=== PATIENT | male | born 1950 | race Caucasian/White ===

== ENCOUNTER 2023-04-13 21:08 | Emergency (ER) | payer OTHER ==
--- OUTSIDE RECORDS SUMMARY | 2023-04-13 21:13 | XMS REPORT | Continuity of Care Document ---
:1950 Author Organization [facility] t Address [address] [place] [address] Care Team Providers Name Role Phone Asked, No Pcp Primary Care Physician Unavailable Yas CADENA, Markie Attending Clinician Payers Payer Name Policy Type Policy Number Effective Date Expiration Date S ource Problems This patient has no known problems. Allergies, Adverse Reactions, Alerts Allergy Allergy Status Severity Reaction(s) Onset Inactive Treating Comm ents Source Name Type Date Date Clinician Other Propensi Active Method i ty to 09-[address] adverse 00:00: mites - Hospita reaction 00 congestio l s ns Penicill Propensi Active [facility] carla in G ty to 09-22 st adverse 00:00: Hospita reaction 00 l s to drug Social History Social Habit Start Date Stop Date Quantity Comments Source Sexual orientation [facility] Alcohol intake 2017-10-07 2017-10-07 Current [facility] 00:00:00 00:00:00 non-drinker of Hospital alcohol (finding) Tobacco use and 2017-09-22 2017-09-22 Smokeless [facility] exposure 00:00:00 00:00:00 tobacco non-user Hospital History of Social 2017-09-22 2017-09-[address] function 00:00:00 00:00:00 Hospital Sex Assigned At [birth year] [facility] 00:00:00 [facility]00 [facility] Smoking Status Start Date Stop Date Source Never smoked tobacco [facility] Medications Ordered Filled Start Stop Current Ordering Indication Dosage Frequency Signature Comments Components Source Medication Medication Date Date Medication? Clinician (SIG) Name Name polyethylen 2018 Yes 17g Q24H Take 17 g M ethodi e glycol 5-[address] (MIRALAX) 18:16: daily as [facility]osp [facility] 17 gram 30 needed for l packet constipati on. fluticasone Yes 1{puff} Q.5D Inhale 1 [facility] (FLOVENT 5-[address] HFA) 110 18:16: (two) Hospita mcg/actuati 30 times a l on inhaler day. azelastine Yes 1{spray Q.5D 1 spray M ethodi (ASTELIN) 5-22 } into each st 137 mcg 18:16: nostril 2 Hospi ta (0.1 %) 30 (two) l nasal spray times a day. Use in each nostril as directed losartan-hy Yes 1{tbl} QD Take 1 [facility] drochloroth 5-[address] iazide 18:16: mouth Hospita (HYZAAR) 30 daily. l 100-12.5 mg per tablet bisoprolol Yes 5mg QD Take 5 mg [facility] (ZEBETA) 5 5-[address] MG tablet 18:16: daily. Hospit a 30 l ranitidine Yes 150mg Q24H Take 150 [facility] (ZANTAC) 5-[address] 150 MG 18:16: mouth [facility]ospita tablet 30 daily as l needed for heartburn. flaxseed Yes [facility] oil oil 5-22 st 18:16: Hospita 30 l docosahexan Yes Take by Met hodi oic 5-[address] acid/epa 18:16: Hospita (FISH OIL 30 l ORAL) polyethylen Yes 17g Q24H Take 17 g M ethodi e glycol 5-[address] (MIRALAX) 18:16: daily as Hosp [facility]illary 17 gram 30 needed for l packet constipati on. NON Yes SINUPRO / Methodi FORMULARY 5-[address] 18:16: cap daily Hospita 30 l multivitami Yes 1{tbl} QD Take 1 Me thodi n 5-[address] (THERAGRAN) 18:16: mouth Hospi ta tablet 30 daily. l acetaminoph 2018-0 Yes 500mg Q6H Take 500 M ethodi en 5-[address] (TYLENOL) 18:16: mouth [facility]ospita 500 MG 30 every 6 l tablet (six) hours as needed for mild pain. IBUPROFEN 2018-0 Yes Take by Metho di ORAL 5-[address] 18:16: Hospita 30 l NON 2018-0 Yes SINUPRO / Methodi FORMULARY 5-[address] 18:16: cap daily Hospita 30 l multivitami 2018-0 Yes 1{tbl} QD Take 1 Me thodi n 5-[address] (THERAGRAN) 18:16: mouth Hospi ta tablet 30 daily. l acetaminoph 2018-0 Yes 500mg Q6H Take 500 M ethodi en 5-[address] (TYLENOL) 18:16: mouth Hospita 500 MG 30 every 6 l tablet (six) hours as needed for mild pain. IBUPROFEN 2018-0 Yes Take by Metho di ORAL 5-[address] 18:16: Hospita 30 l fluticasone 2018-0 Yes 1{puff} Q.5D Inhale 1 [facility] (FLOVENT 5-[address] HFA) 110 18:16: (two) Hospita mcg/actuati 30 times a l on inhaler day. azelastine 2017-0 Yes 1{spray Q.5D 1 spray M ethodi (ASTELIN) 5-22 } into each st 137 mcg 18:16: nostril 2 Hospi ta (0.1 %) 30 (two) l nasal spray times a day. Use in each nostril as directed losartan-hy 2018-0 Yes 1{tbl} QD Take 1 Me [facility] drochloroth 5-[address] iazide 18:16: mouth Hospita (HYZAAR) 30 daily. l 100-12.5 mg per tablet bisoprolol 2018-0 Yes 5mg QD Take 5 mg [facility] (ZEBETA) 5 5-[address] MG tablet 18:16: daily. Hospit a 30 l ranitidine 2018-0 Yes 150mg Q24H Take 150 [facility] (ZANTAC) 5-[address] 150 MG 18:16: mouth Hospita tablet 30 daily as l needed for heartburn. flaxseed 2018-0 Yes [facility] oil oil - st 18:16: Hospita 30 l docosahexan 2018-0 Yes Take by Met hodi oic 5-[address] acid/epa 18:16: Hospita (FISH OIL 30 l ORAL) polyethylen 2018-0 Yes 17g Q24H Take 17 g M ethodi e glycol 5-[address] (MIRALAX) 18:16: daily as Hosp [facility]illary 17 gram 30 needed for l packet constipati on. NON 2018-0 Yes SINUPRO / [facility] FORMULARY -[address] 18:16: cap daily Hospita 30 l multivitami 2018-0 Yes 1{tbl} QD Take 1 Me thodi n 5-[address] (THERAGRAN) 18:16: mouth Hospi ta tablet 30 daily. l acetaminoph 2017-0 Yes 500mg Q6H Take 500 M ethodi en 5-[address] (TYLENOL) 18:16: mouth [facility]ospita 500 MG 30 every 6 l tablet (six) hours as needed for mild pain. IBUPROFEN 2017-0 Yes Take by Metho di ORAL - mouth. st 18:16: Hospita 30 l fluticasone 2017-0 Yes 1{puff} Q.5D Inhale 1 [facility] (FLOVENT 5-[address] HFA) 110 18:16: (two) Hospita mcg/actuati 30 times a l on inhaler day. azelastine 2017-0 Yes 1{spray Q.5D 1 spray M ethodi (ASTELIN) 5-22 } into each st 137 mcg 18:16: nostril 2 Hospi ta (0.1 %) 30 (two) l nasal spray times a day. Use in each nostril as directed losartan-hy 2018-0 Yes 1{tbl} QD Take 1 Me thodi drochloroth 5-[address] iazide 18:16: mouth [facility]ospita (HYZAAR) 30 daily. l 100-12.5 mg per tablet bisoprolol 2017-0 Yes 5mg QD Take 5 mg [facility] (ZEBETA) 5 5-[address] MG tablet 18:16: daily. Hospit a 30 l ranitidine 2018-0 Yes 150mg Q24H Take 150 Me [facility] (ZANTAC) 5-[address] 150 MG 18:16: mouth Hospita tablet 30 daily as l needed for heartburn. flaxseed 2017-0 Yes Method[facility] oil oil - st 18:16: Hospita 30 l docosahexan 2017-0 Yes Take by Met hodi oic 5- mouth. st acid/epa 18:16: Hospita (FISH OIL 30 l ORAL) polyethylen 2017-0 Yes 17g Q24H Take 17 g M ethodi e glycol 5-[address] (MIRALAX) 18:16: daily as Hosp [facility]illary 17 gram 30 needed for l packet constipati on. NON 0 Yes SINUPRO / [facility] FORMULARY - iflora 1 st 18:16: cap daily Hospita 30 l multivitami 2017-0 Yes 1{tbl} QD Take 1 Me thodi n 5-[address] (THERAGRAN) 18:16: mouth Hospi ta tablet 30 daily. l acetaminoph 0 Yes 500mg Q6H Take 500 M ethodi en 5-[address] (TYLENOL) 18:16: mouth [facility]ospita 500 MG 30 every 6 l tablet (six) hours as needed for mild pain. IBUPROFEN Yes Take by Metho di ORAL 10-[address] 18:16: Hospita 30 l fluticasone 2017-0 Yes 1{puff} Q.5D Inhale 1 [facility] (FLOVENT 5-[address] HFA) 110 18:16: (two) Hospita mcg/actuati 30 times a l on inhaler day. azelastine 0 Yes 1{spray Q.5D 1 spray M ethodi (ASTELIN) 5-22 } into each st 137 mcg 18:16: nostril 2 Hospi ta (0.1 %) 30 (two) l nasal spray times a day. Use in each nostril as directed losartan-hy 2017-0 Yes 1{tbl} QD Take 1 Me [facility] drochloroth 5-[address] iazide 18:16: mouth [facility]ospita (HYZAAR) 30 daily. l 100-12.5 mg per tablet bisoprolol 2017-0 Yes 5mg QD Take 5 mg Me [facility] (ZEBETA) 5 5-[address] MG tablet 18:16: daily. Hospit a 30 l ranitidine 2017-0 Yes 150mg Q24H Take 150 Me [facility] (ZANTAC) 5-[address] 150 MG 18:16: mouth [facility]ospita tablet 30 daily as l needed for heartburn. flaxseed 2017-0 Yes Method[facility] oil oil - st 18:16: Hospita 30 l docosahexan 2017-0 Yes Take by Met hodi oic -[address] acid/epa 18:16: Hospita (FISH OIL 30 l ORAL) polyethylen 2017-0 Yes 17g Q24H Take 17 g M ethodi e glycol 5-[address] (MIRALAX) 18:16: daily as Hosp [facility]illary 17 gram 30 needed for l packet constipati on. NON 2017-0 Yes SINUPRO / [facility] FORMULARY -[address] 18:16: cap daily Hospita 30 l multivitami 2017-0 Yes 1{tbl} QD Take 1 Me thodi n 5-[address] (THERAGRAN) 18:16: mouth Hospi ta tablet 30 daily. l acetaminoph 2017-0 Yes 500mg Q6H Take 500 M ethodi en 5-[address] (TYLENOL) 18:16: mouth [facility]ospita 500 MG 30 every 6 l tablet (six) hours as needed for mild pain. IBUPROFEN 2017-0 Yes Take by Metho di ORAL - mouth. st 18:16: Hospita 30 l fluticasone 2017-0 Yes 1{puff} Q.5D Inhale 1 [facility] (FLOVENT 5-[address] HFA) 110 18:16: (two) Hospita mcg/actuati 30 times a l on inhaler day. azelastine 2017-0 Yes 1{spray Q.5D 1 spray M ethodi (ASTELIN) 5-22 } into each st 137 mcg 18:16: nostril 2 Hospi ta (0.1 %) 30 (two) l nasal spray times a day. Use in each nostril as directed losartan-hy 2017-0 Yes 1{tbl} QD Take 1 Me th[facility] drochloroth 5-[address] iazide 18:16: mouth [facility]ospita (HYZAAR) 30 daily. l 100-12.5 mg per tablet bisoprolol 2017-0 Yes 5mg QD Take 5 mg [facility] (ZEBETA) 5 -[address] MG tablet 18:16: daily. Hospit a 30 l ranitidine 2017-0 Yes 150mg Q24H Take 150 [facility] (ZANTAC) 5-[address] 150 MG 18:16: mouth [facility]ospita tablet 30 daily as l needed for heartburn. flaxseed 2018-0 Yes Method[facility] oil oil - st 18:16: Hospita 30 l docosahexan 2018-0 Yes Take by Met hodi oic - mouth. st acid/epa 18:16: Hospita (FISH OIL 30 l ORAL) polyethylen 2017-0 Yes 17g Q24H Take 17 g M ethodi e glycol -[address] (MIRALAX) 18:16: daily as Hosp [facility]illary 17 gram 30 needed for l packet constipati on. NON 0 Yes SINUPRO / [facility] FORMULARY 10-[address] 18:16: cap daily Hospita 30 l multivitami 2017-0 Yes 1{tbl} QD Take 1 Me thodi n 5-[address] (THERAGRAN) 18:16: mouth Hospi ta tablet 30 daily. l acetaminoph 2017-0 Yes 500mg Q6H Take 500 M ethodi en 5-[address] (TYLENOL) 18:16: mouth Hospita 500 MG 30 every 6 l tablet (six) hours as needed for mild pain. IBUPROFEN 0 Yes Take by Metho di ORAL 10-[address] 18:16: Hospita 30 l fluticasone 2017-0 Yes 1{puff} Q.5D Inhale 1 [facility] (FLOVENT 5-[address] HFA) 110 18:16: (two) Hospita mcg/actuati 30 times a l on inhaler day. azelastine 2017-0 Yes 1{spray Q.5D 1 spray M ethodi (ASTELIN) 10-05 } into each st 137 mcg 18:16: nostril 2 Hospi ta (0.1 %) 30 (two) l nasal spray times a day. Use in each nostril as directed losartan-hy 2018-0 Yes 1{tbl} QD Take 1 Me thodi drochloroth 5-[address] iazide 18:16: mouth Hospita (HYZAAR) 30 daily. l 100-12.5 mg per tablet bisoprolol 2017-0 Yes 5mg QD Take 5 mg Me [facility] (ZEBETA) 5 5-[address] MG tablet 18:16: daily. Hospit a 30 l ranitidine 2018-0 Yes 150mg Q24H Take 150 Me [facility] (ZANTAC) 5-[address] 150 MG 18:16: mouth Hospita tablet 30 daily as l needed for heartburn. flaxseed 2017-0 Yes Method[facility] oil oil - st 18:16: Hospita 30 l docosahexan 2017-0 Yes Take by Met hodi oic - mouth. st acid/epa 18:16: Hospita (FISH OIL 30 l ORAL) polyethylen 2017-0 Yes 17g Q24H Take 17 g M ethodi e glycol 5-[address] (MIRALAX) 18:16: daily as Hosp [facility]illary 17 gram 30 needed for l packet constipati on. NON 0 Yes SINUPRO / [facility] FORMULARY -[address] 18:16: cap daily Hospita 30 l multivitami 2017-0 Yes 1{tbl} QD Take 1 Me thodi n 5-[address] (THERAGRAN) 18:16: mouth Hospi ta tablet 30 daily. l acetaminoph 2017-0 Yes 500mg Q6H Take 500 M ethodi en 5-[address] (TYLENOL) 18:16: mouth [facility]ospita 500 MG 30 every 6 l tablet (six) hours as needed for mild pain. IBUPROFEN 2017-0 Yes Take by Metho di ORAL - mouth. st 18:16: Hospita 30 l fluticasone 2018-0 Yes 1{puff} Q.5D Inhale 1 [facility] (FLOVENT 5-[address] HFA) 110 18:16: (two) Hospita mcg/actuati 30 times a l on inhaler day. azelastine 2017-0 Yes 1{spray Q.5D 1 spray M ethodi (ASTELIN) 10-05 } into each st 137 mcg 18:16: nostril 2 Hospi ta (0.1 %) 30 (two) l nasal spray times a day. Use in each nostril as directed losartan-hy 2018-0 Yes 1{tbl} QD Take 1 Me thodi drochloroth 5-[address] iazide 18:16: mouth [facility]ospita (HYZAAR) 30 daily. l 100-12.5 mg per tablet bisoprolol 0 Yes 5mg QD Take 5 mg [facility] (ZEBETA) 5 5-[address] MG tablet 18:16: daily. Hospit a 30 l ranitidine 2017-0 Yes 150mg Q24H Take 150 Me [facility] (ZANTAC) 5-[address] 150 MG 18:16: mouth Hospita tablet 30 daily as l needed for heartburn. flaxseed 2017-0 Yes Method[facility] oil oil - st 18:16: Hospita 30 l docosahexan 2017-0 Yes Take by Met hodi oic 5-[address] acid/epa 18:16: Hospita (FISH OIL 30 l ORAL) polyethylen 2017-0 Yes 17g Q24H Take 17 g M ethodi e glycol 5-[address] (MIRALAX) 18:16: daily as Hosp [facility]illary 17 gram 30 needed for l packet constipati on. NON 0 Yes SINUPRO / [facility] FORMULARY -[address] 18:16: cap daily Hospita 30 l multivitami 2017-0 Yes 1{tbl} QD Take 1 Me thodi n 5-[address] (THERAGRAN) 18:16: mouth Hospi ta tablet 30 daily. l acetaminoph 0 Yes 500mg Q6H Take 500 M ethodi en 5-[address] (TYLENOL) 18:16: mouth [facility]ospita 500 MG 30 every 6 l tablet (six) hours as needed for mild pain. IBUPROFEN 0 Yes Take by Metho di ORAL 5-[address] 18:16: Hospita 30 l fluticasone 2017-0 Yes 1{puff} Q.5D Inhale 1 [facility] (FLOVENT 5-[address] HFA) 110 18:16: (two) Hospita mcg/actuati 30 times a l on inhaler day. azelastine 2017-0 Yes 1{spray Q.5D 1 spray M ethodi (ASTELIN) 5-22 } into each st 137 mcg 18:16: nostril 2 Hospi ta (0.1 %) 30 (two) l nasal spray times a day. Use in each nostril as directed losartan-hy 0 Yes 1{tbl} QD Take 1 Me thodi drochloroth 5-[address] iazide 18:16: mouth [facility]ospita (HYZAAR) 30 daily. l 100-12.5 mg per tablet bisoprolol Yes 5mg QD Take 5 mg Me [facility] (ZEBETA) 5 5-[address] MG tablet 18:16: daily. Hospit a 30 l ranitidine Yes 150mg Q24H Take 150 [facility] (ZANTAC) 5-[address] 150 MG 18:16: mouth Hospita tablet 30 daily as l needed for heartburn. flaxseed 0 Yes Method[facility] oil oil - st 18:16: Hospita 30 l docosahexan Yes Take by Met hodi oic 5-[address] acid/epa 18:16: Hospita (FISH OIL 30 l ORAL) Procedures Procedure Date / Time Performed Performing Clinician [facility] e US VASCULAR SCREENING 2021-07-09 20:23:22 [facility] HEART SCAN PLUS CT HEART SCAN PLUS W 2021-07-09 18:19:51 [facility] PHYSICIAN ORDER Plan of Care Planned Activity Planned Date Details Comments Source Future Scheduled 2023-04-13 [facility] for [facility] 21:12:03 malignant neoplasm of colon (procedure) [code = 836437547] Future Scheduled 2023-04-13 Screening for [facility] Test 21:12:03 malignant neoplasm of colon (procedure) [code = 878062365] Future Scheduled 2023-04-13 [facility] for [facility] 21:12:03 malignant neoplasm of colon (procedure) [code = 869958246] Future Scheduled 2023-04-13 Hepatitis C screening [facility] Test 21:12:03 (procedure) [code = 654769136] Future Scheduled 2023-04-13 [facility]ening for [facility] 21:12:03 malignant neoplasm of colon (procedure) [code = 151486188] Future Scheduled 2023-04-13 [facility] for [facility] Test 21:12:03 malignant neoplasm of colon (procedure) [code = 700731042] Future Scheduled 2023-04-13 SHINGLES VACCINES (1 Met [facility] Test 21:12:03 of 2) [code = SHINGLES VACCINES (1 of 2)] Future Scheduled 2023-04-13 COVID-19 VACCINE (4 - [facility] Test 21:12:03 ) [code = COVID-19 VACCINE ()] Future Scheduled 2023-04-13 INFLUENZA VACCINE [facility] Test 21:12:03 (#1) [code = INFLUENZA VACCINE (#1)] Future Scheduled 2023-03-13 [facility]ening for [facility] 00:17:27 malignant neoplasm of colon (procedure) [code = 610370741] Future Scheduled 2023-03-13 [facility]ening for [facility] 00:17:27 malignant neoplasm of colon (procedure) [code = 716491187] Future Scheduled 2023-03-13 [facility] for [facility] Test 00:17:27 malignant neoplasm of colon (procedure) [code = 267265680] Future Scheduled 2023-03-13 Hepatitis C screening [facility] Test 00:17:27 (procedure) [code = 176439780] Future Scheduled 2023-03-13 Screening for [facility] Test 00:17:27 malignant neoplasm of colon (procedure) [code = 106222940] Future Scheduled 2023-03-13 [facility] for [facility] Test 00:17:27 malignant neoplasm of colon (procedure) [code = 867568942] Future Scheduled 2023-03-13 SHINGLES VACCINES (1 [facility] 00:17:27 of 2) [code = SHINGLES VACCINES (1 of 2)] Future Scheduled 2023-03-13 COVID-19 VACCINE (4 - [facility] Test 00:17:27 ) [code = COVID-19 VACCINE ()] Future Scheduled 2023-03-13 INFLUENZA VACCINE [facility] 00:17:27 (#1) [code = INFLUENZA VACCINE (#1)] Future Scheduled 2023-03-13 [facility] for [facility] 00:17:27 malignant neoplasm of colon (procedure) [code = 416503547] Future Scheduled 2023-03-13 [facility] for [facility] 00:17:27 malignant neoplasm of colon (procedure) [code = 219868444] Future Scheduled 2023-03-13 [facility] for [facility] Test 00:17:27 malignant neoplasm of colon (procedure) [code = 209553385] Future Scheduled 2023-03-13 [facility] Test 00:17:27 (procedure) [code = 625561395] Future Scheduled 2023-03-13 [facility]ening for [facility] Test 00:17:27 malignant neoplasm of colon (procedure) [code = 392820648] Future Scheduled 2023-03-13 Screening for [facility] Test 00:17:27 malignant neoplasm of colon (procedure) [code = 357868698] Future Scheduled 2023-03-13 SHINGLES VACCINES (1 [facility] 00:17:27 of 2) [code = SHINGLES VACCINES (1 of 2)] Future Scheduled 2023-03-13 COVID-19 VACCINE (4 - [facility] Test 00:17:27 season) [code = COVID-19 VACCINE (4 - season)] Future Scheduled 2023-03-13 INFLUENZA VACCINE [facility] Test 00:17:27 (#1) [code = INFLUENZA VACCINE (#1)] Future Scheduled 2023-03-13 Screening for [facility] Test 00:17:27 malignant neoplasm of colon (procedure) [code = 120531373] Future Scheduled 2023-03-13 [facility]ening for [facility] Test 00:17:27 malignant neoplasm of colon (procedure) [code = 326897890] Future Scheduled 2023-03-13 [facility]ening for [facility] Test 00:17:27 malignant neoplasm of colon (procedure) [code = 709105040] Future Scheduled 2023-03-13 [facility] Test 00:17:27 (procedure) [code = 219618352] Future Scheduled 2023-03-13 Screening for [facility] 00:17:27 malignant neoplasm of colon (procedure) [code = 803050782] Future Scheduled 2023-03-13 Screening for [facility] Test 00:17:27 malignant neoplasm of colon (procedure) [code = 373006607] Future Scheduled 2023-03-13 SHINGLES VACCINES (1 Met [facility] Test 00:17:27 of 2) [code = SHINGLES VACCINES (1 of 2)] Future Scheduled 2023-03-13 COVID-19 VACCINE (4 - [facility] Test 00:17:27 season) [code = COVID-19 VACCINE (4 - season)] Future Scheduled 2023-03-13 INFLUENZA VACCINE [facility] Test 00:17:27 (#1) [code = INFLUENZA VACCINE (#1)] Future Scheduled 2022-05-21 Hepatitis C screening [facility] Test 15:23:12 (procedure) [code = 101952313] Future Scheduled 2022-05-21 COLONOSCOPY SCREENING [facility] Test 15:23:12 [code = COLONOSCOPY SCREENING] Future Scheduled 2022-05-21 SHINGLES VACCINES (1 Met [facility] Test 15:23:12 of 2) [code = SHINGLES VACCINES (1 of 2)] Future Scheduled 2022-05-21 COVID-19 VACCINE (4 - [facility] Test 15:23:12 Booster for Pfizer series) [code = COVID-19 VACCINE (4 - Booster for Pfizer series)] Future Scheduled 2022-05-21 INFLUENZA VACCINE Method [facility] Test 15:23:12 [code = INFLUENZA VACCINE] Future Scheduled 2022-05-21 Hepatitis C screening [facility] Test 15:23:12 (procedure) [code = 708541598] Future Scheduled 2022-05-21 COLONOSCOPY SCREENING [facility] Test 15:23:12 [code = COLONOSCOPY SCREENING] Future Scheduled 2022-05-21 SHINGLES VACCINES (1 Met [facility] Test 15:23:12 of 2) [code = SHINGLES VACCINES (1 of 2)] Future Scheduled 2022-05-21 COVID-19 VACCINE (4 - [facility] Test 15:23:12 Booster for Pfizer series) [code = COVID-19 VACCINE (4 - Booster for Pfizer series)] Future Scheduled 2022-05-21 INFLUENZA VACCINE Method [facility] Test 15:23:12 [code = INFLUENZA VACCINE] Future Scheduled 2022-05-21 Hepatitis C screening [facility] Test 15:23:12 (procedure) [code = 436641412] Future Scheduled 2022-05-21 COLONOSCOPY SCREENING [facility] Test 15:23:12 [code = COLONOSCOPY SCREENING] Future Scheduled 2022-05-21 SHINGLES VACCINES (1 Met [facility] Test 15:23:12 of 2) [code = SHINGLES VACCINES (1 of 2)] Future Scheduled 2022-05-21 COVID-19 VACCINE (4 - Me [facility] Test 15:23:12 Booster for Pfizer series) [code = COVID-19 VACCINE (4 - Booster for Pfizer series)] Future Scheduled 2022-05-21 INFLUENZA VACCINE [facility] Test 15:23:12 [code = INFLUENZA VACCINE] Future Scheduled 2022-04-30 Hepatitis C screening [facility] Test 21:21:15 (procedure) [code = 592229274] Future Scheduled 2022-04-30 COLONOSCOPY SCREENING [facility] Test 21:21:15 [code = COLONOSCOPY SCREENING] Future Scheduled 2022-04-30 SHINGLES VACCINES (1 Met [facility] Test 21:21:15 of 2) [code = SHINGLES VACCINES (1 of 2)] Future Scheduled 2022-04-30 COVID-19 VACCINE (4 - [facility] Test 21:21:15 Booster for Pfizer series) [code = COVID-19 VACCINE (4 - Booster for Pfizer series)] Future Scheduled 2022-04-30 INFLUENZA VACCINE [facility] Test 21:21:15 [code = INFLUENZA VACCINE] Encounters Start End Encounter Admission Attending Care Care Encounter Source Date/Time Date/Time Type Type Clinicians Facility Department ID 2021-07-09 2021-07-[address]840.1 [id number] Methodi 11:34:07 23:59:00 Encounter Markie [id number] 3.430.2.7 Hospit a .3.564937 l .8 2021-07-09 2021-07-[address]1 [id number] Methodi 11:33:42 11:33:42 Encounter Markie [id number] 3.430.2.7 Hospit a .3.169380 l .8 2021-07-09 2021-07-09 Travel 1.2.840.1 [id number] Methodi 00:00:00 00:00:[id number] 3.430.2.7 0.2.7.3.698 Ho spita .3.586680 084.8 l .8 2021-06-13 2021-06-13 Travel 1.2.840.1 [id number] [id number] Methodi 00:00:00 00:00:[address] 3.430.2.7 0.2.7.3.698 Ho spita .3.353056 084.8 l .8 2021-06-09 2021-06-09 Travel 1.2.840.1 [id number] [id number] Methodi 00:00:00 00:00:[id number] 3.430.2.7 0.2.7.3.698 Ho spita .3.435808 084.8 l .8 2021-06-09 2021-06-09 Transcribe Yas, 1.2.840.1 [id number] Methodi 00:00:00 00:00:00 Orders Markie [id number] 3.430.2.7 Hospit a .3.709581 l .8 Results This patient has no known results.
[2023-04-13 22:41] LABS: Absolute Lymphocytes (CBC) 0.8 K/uL (0.7-4.9); Hematocrit 40.3 % (39.6-49.0); Lymphocytes % 8.4 % (15.3-44.8); MCV 88.7 fL (80-100); MPV 6.6 fL (7.6-11.3); Platelets 278 thou/uL (152-406); RBC Red Blood Cell Count 4.55 M/uL (4.33-5.43)
[2023-04-13 23:00] LABS: Potassium 3.3 mEq/L (3.5-5.1)
[2023-04-13 23:01] LABS: Albumin 3.7 g/dL (3.4-5.0); Bilirubin Total 0.4 mg/dL (0.2-1.0); Magnesium 2.6 mg/dL (1.6-2.4); Protein, Total 7.7 g/dL (6.4-8.2); Troponin High Sensitivity 13.7 pg/mL (<58.9)
[2023-04-13 23:06] LABS: Protime INR 1.07
[2023-04-14] MEDS ORDERED: MECLIZINE HCL 12.5 MG TAB ONE (00:22)
[2023-04-14] MEDS ORDERED: NA CHLORIDE 0.9% 500 ML ONE (00:22)
[2023-04-14 00:36] LABS: Specific Gravity 1.012 (1.005-1.030); Urine Bacteria None Seen /HPF (<20); Urine Bilirubin NEGATIVE (Negative); Urine Blood Negative (Negative); Urine Clarity Clear (Clear); Urine Color Light-Yellow (Yellow); Urine Glucose NEGATIVE (Negative); Urine Mucus Slight /HPF (None Seen); Urine Protein NEGATIVE (Negative); Urine RBC <5 /HPF (None Seen); Urine Urobilinogen Normal (Normal); Urine pH 6.5 (5.0-7.0)
--- NOTE | 2023-04-14 01:45 | ER ---
Nurse's Notes [facility] Name: Zachary Kaur Age: 73 yrs Sex: Male : 1950 Arrival Date: 04/13/2023 Time: 21:08 Bed 8 Private MD: Diagnosis: Dizziness and giddiness;Lower abdominal pain, unspecified;Hypokalemia Presentation: 04/13 21:26 Chief complaint: Patient states: took my losartan later in the day because i forgot to lg3 take it this morning. went about my evening. few hours later i bent over to look at something in the lower cabinet and when i stood up i was really dizzy and light headed. i checked my BP at least 5 times and it was all over the place. anywhere from 119-75 for my systolic. i feel ok now just a little weak. Coronavirus screen: Client denies travel out of the [place] in the last 14 days. At this time, the client does not indicate any symptoms associated with coronavirus-19. Ebola Screen: No symptoms or risks identified at this time. Initial Sepsis Screen: Does the patient meet any 2 criteria? No. Patient's initial sepsis screen is negative. Does the patient have a suspected source of infection? No. Patient's initial sepsis screen is negative. Risk Assessment: Do you want to hurt yourself or someone else? Patient reports no desire to harm self or others. Onset of symptoms was April 13, 2023. 21:26 Method Of Arrival: Ambulatory lg3 21:26 Acuity: RYAN 4 lg3 Triage Assessment: 21:32 General: Appears in no apparent distress. comfortable, Behavior is calm, cooperative. lg3 Pain: Denies pain. EENT: No deficits noted. No signs and/or symptoms were reported regarding the EENT system. Neuro: No deficits noted. [place] Agitation-Sedation Scale (RASS): 0 - Alert and Calm Level of Consciousness is awake, alert, obeys commands, Oriented to person, place, time, situation, Reports dizziness. Cardiovascular: No deficits noted. Denies chest pain, shortness of breath, Capillary refill < 3 seconds Clubbing of nail beds is absent JVD is absent Patient's skin is warm and dry. Respiratory: No deficits noted. Airway is patent Respiratory effort is even, unlabored, Respiratory pattern is regular, symmetrical. GI: No deficits noted. No signs and/or symptoms were reported involving the gastrointestinal system. Abdomen is round non-distended. : No deficits noted. No signs and/or symptoms were reported regarding the genitourinary system. Derm: No deficits noted. No signs and/or symptoms reported regarding the dermatologic system. Skin is intact, is healthy with good turgor, Skin is dry, Skin is normal, Skin temperature is warm. Musculoskeletal: No deficits noted. No signs and/or symptoms reported regarding the musculoskeletal system. Circulation, motion, and sensation intact. Range of motion: intact in all extremities. Historical: - Allergies: 21:32 PENICILLINS; lg3 - Home Meds: 21:32 losartan oral [Active]; Symbicort inhalation [Active]; azelastine nasal [Active]; lg3 Lipitor 10 mg Oral tablet [Active]; exhanse [Active]; - PMHx: 21:32 high cholesterol; HTN; Asthma; Pneumonia; prostate cancer; lg3 - PSHx: 21:32 prostate; sinus; lg3 - Immunization history:: Adult Immunizations up to date. - Social history:: Smoking status: Patient denies any tobacco usage or history of. Patient/guardian denies using alcohol, street drugs. Screenin:34 [facility] ED Fall Risk Assessment (Adult) History of falling in the last 3 months, vc1 including since admission No falls in past 3 months (0 pts) Confusion or Disorientation No (0 pts) Intoxicated or Sedated No (0 pts) Impaired Gait No (0 pts) Mobility Assist Device Used No (0 pt) Altered Elimination No (0 pt) Score/Fall Risk Level 0 - 2 = Low Risk Oriented to surroundings, Maintained a safe environment, Educated pt \T\ family on fall prevention, incl call for assistance when getting out of bed. Abuse screen: Denies threats or abuse. Nutritional screening: No deficits noted. Tuberculosis screening: No symptoms or risk factors identified. Assessment: 04/14 00:30 Reassessment: No changes from previously documented assessment. Patient and/or family vc1 updated on plan of care and expected duration. Pain level reassessed. Patient is alert, oriented x 3, equal unlabored respirations, skin warm/dry/pink. 01:30 Reassessment: No changes from previously documented assessment. Patient and/or family vc1 updated on plan of care and expected duration. Pain level reassessed. Patient is alert, oriented x 3, equal unlabored respirations, skin warm/dry/pink. Vital Signs: 04/13 21:26 BP 144 / 61; Pulse 70; Resp 17 S; Temp 98(O); Pulse Ox 100% on R/A; Weight 102.97 kg lg3 (R); Height 5 ft. 11 in. (R); 22:25 BP 154 / 79 Supine; Pulse 61; bp 22:29 BP 141 / 81 Standing; Pulse 69; Resp 16; Pulse Ox 97% ; bp 23:30 BP 142 / 78; Pulse 70; Resp 16; Pulse Ox 97% ; vc1 04/14 00:30 BP 132 / 77; Pulse 64; Resp 14; Pulse Ox 96% ; vc1 01:30 BP 130 / 76; Pulse 60; Resp 18; Pulse Ox 98% ; vc1 04/13 21:26 Body Mass Index 31.66 (102.97 kg, 180.34 cm) lg3 ED Course: 04/13 21:14 Patient arrived in ED. gm2 21:32 Triage completed. lg3 21:32 Arm band placed on left wrist. lg3 21:39 Clay Beard PA is PHCP. cp 21:39 Helder Robb MD is Attending Physician. cp 22:13 Devon Diehl, STEVE is Primary Nurse. bp 22:28 Inserted saline lock: 22 gauge in right forearm, using aseptic technique. Blood bp collected. 22:36 Patient has correct armband on for positive identification. Bed in low position. Call vc1 light in reach. Side rails up X2. Client placed on continuous cardiac and pulse oximetry monitoring. NIBP monitoring applied. 22:52 XRAY Chest (1 view) In Process Unspecified. EDMS 04/14 00:14 CT Head Brain wo Cont In Process Unspecified. EDMS 00:14 CT Abd/Pelvis - IV Contrast Only In Process Unspecified. EDMS 02:24 No provider procedures requiring assistance completed. IV discontinued, intact, vc1 bleeding controlled, No redness/swelling at site. Pressure dressing applied. Administered Medications: 00:00 Drug: Meclizine PO 25 mg PO once Route: PO; vc1 02:01 Follow up: Response: No adverse reaction; Marked relief of symptoms vc1 00:37 Drug: NS 0.9% IV 500 ml IV at 250 ml/hr continuous Route: IV; Rate: 250 ml/hr; Site: vc1 right antecubital; 01:49 Drug: Potassium PO Effervescent Tablet 50 mEq PO once; dissolve in 4 ounces of water or vc1 juice Route: PO; 02:01 Follow up: Response: No adverse reaction; Medication administered at discharge. vc1 Medication: 04/13 22:36 VIS not applicable for this client. vc1 Outcome: 04/14 01:44 Discharge ordered by . socorro 02:25 Discharged to home ambulatory, with significant other, 1 02:25 Condition: good 02:25 Discharge instructions given to patient, Instructed on discharge instructions, follow up and referral plans. Demonstrated understanding of instructions, follow-up care, 02:25 Patient left the ED. vc1 Signatures: Dispatcher [employer] EDMS Clay Beard PA PA cp Peltier, Brian RN Opal Donohue RN RN lg3 Aura Etienne RN RN vc1 Radha French 2
--- NOTE | 2023-04-14 01:45 | EDPHYS ---
Physician Documentation [facility] Name: Zachary Kaur Age: 73 yrs Sex: Male : 1950 Arrival Date: 04/13/2023 Time: 21:08 Bed 8 Private MD: ED Physician Helder Robb HPI: 04/13 21:45 This 73 yrs old Male presents to ER via Ambulatory with complaints of Dizziness, low cp blood pressure, Abdominal Pain. 21:45 The patient presents with dizziness, feeling faint, lightheadedness. Onset: The cp symptoms/episode began/occurred today. 21:45 Patient is a 73-year-old male who presents to the emergency department with complaints cp of having an episode of dizziness this evening when he bent over and stood up. He then reports he checked his blood pressure and measured a systolic pressure in the 70's. Patient complains of general weakness and lower abdominal pain. Patient reports 1 episode of diarrhea today and denies any vomiting. Denies any blood in his stool or dark tarry stools. Historical: - Allergies: 21:32 PENICILLINS; lg3 - Home Meds: 21:32 losartan oral [Active]; Symbicort inhalation [Active]; azelastine nasal [Active]; lg3 Lipitor 10 mg Oral tablet [Active]; exhanse [Active]; - PMHx: 21:32 high cholesterol; HTN; Asthma; Pneumonia; prostate cancer; lg3 - PSHx: 21:32 prostate; sinus; lg3 - Immunization history:: Adult Immunizations up to date. - Social history:: Smoking status: Patient denies any tobacco usage or history of. Patient/guardian denies using alcohol, street drugs. ROS: 21:50 Constitutional: Negative for body aches, chills, fever, poor PO intake, cp 21:50 Eyes: Negative for injury, pain, redness, and discharge, cp 21:50 ENT: Negative for drainage from ear(s), ear pain, sore throat, difficulty swallowing, difficulty handling secretions, 21:50 Cardiovascular: Negative for chest pain, edema, palpitations, 21:50 Respiratory: Negative for cough, shortness of breath, wheezing, 21:50 Abdomen/GI: Positive for abdominal pain, diarrhea, of the right lower quadrant and left lower quadrant, Negative for vomiting, constipation, 21:50 Back: Negative for pain at rest, pain with movement, 21:50 : Negative for urinary symptoms, 21:50 Neuro: Positive for dizziness, Negative for altered mental status, headache, numbness, speech changes, syncope, weakness, 21:50 All other systems are negative, Exam: 21:55 Constitutional: The patient appears in no acute distress, alert, awake, cp non-diaphoretic, non-toxic, well developed, well nourished, 21:55 Head/Face: Normocephalic, atraumatic. cp 21:55 Eyes: Periorbital structures: appear normal, Conjunctiva: normal, no exudate, no injection, Sclera: no appreciated abnormality, Lids and lashes: appear normal, bilaterally, 21:55 ENT: External ear(s): are unremarkable, Nose: is normal, Mouth: Lips: moist, Oral mucosa: pink and intact, moist, Posterior pharynx: is normal, airway is patent, no erythema, no exudate, 21:55 Neck: ROM/movement: is normal, is supple, without pain, no range of motions limitations, 21:55 Chest/axilla: Inspection: normal, 21:55 Cardiovascular: Rate: normal, Rhythm: regular, Edema: is not appreciated, JVD: is not appreciated, 21:55 Respiratory: the patient does not display signs of respiratory distress, Respirations: normal, no use of accessory muscles, no retractions, labored breathing, is not present, Breath sounds: are clear throughout, no decreased breath sounds, no stridor, no wheezing, 21:55 Abdomen/GI: Inspection: abdomen appears normal, Bowel sounds: active, all quadrants, Palpation: soft, in all quadrants, mild abdominal tenderness, in the right lower quadrant and left lower quadrant, rebound tenderness, is not appreciated, involuntary guarding, is not appreciated, 21:55 Back: pain, is absent, ROM is normal, 21:55 Neuro: Orientation: to person, place \T\ time. Mentation: is normal, Cerebellar function: is grossly normal, Motor: moves all fours, strength is normal, Sensation: is normal, Gait: is steady, at a normal pace, without difficulty, 22:35 ECG was reviewed by the Attending Physician. cp Vital Signs: 21:26 BP 144 / 61; Pulse 70; Resp 17 S; Temp 98(O); Pulse Ox 100% on R/A; Weight 102.97 kg lg3 (R); Height 5 ft. 11 in. (R); 22:25 BP 154 / 79 Supine; Pulse 61; bp 22:29 BP 141 / 81 Standing; Pulse 69; Resp 16; Pulse Ox 97% ; bp 23:30 BP 142 / 78; Pulse 70; Resp 16; Pulse Ox 97% ; vc1 04/14 00:30 BP 132 / 77; Pulse 64; Resp 14; Pulse Ox 96% ; vc1 01:30 BP 130 / 76; Pulse 60; Resp 18; Pulse Ox 98% ; vc1 04/13 21:26 Body Mass Index 31.66 (102.97 kg, 180.34 cm) lg3 MDM: 04/13 21:39 Patient medically screened. 23:00 Differential diagnosis: CVA, generalized weakness, GI bleed, hypovolemia, idiopathic cp dizziness, sepsis, TIA. 04/14 01:43 Data reviewed: vital signs, nurses notes, lab test result(s), EKG, radiologic studies, cp CT scan, plain films. 01:43 I considered the following discharge prescriptions or medication management in the emergency department Medications were administered in the Emergency Department. See MAR. Independent interpretation of the following test(s) in the Emergency Department EKG: See my EKG interpretation above. Care significantly affected by the following chronic conditions: Hypertension. Counseling: I had a detailed discussion with the patient and/or guardian regarding the historical points, exam findings, and any diagnostic results supporting the discharge/admit diagnosis, lab results, radiology results, to return to the emergency department if symptoms worsen or persist or if there are any questions or concerns that arise at home. Response to treatment: the patient's symptoms have markedly improved after treatment, and as a result, I will discharge patient. 04/13 22:11 Order name: CBC with Diff; Complete Time: 23:21 04/14 01:21 Interpretation: Normal except: MPV 6.6; MACY% 80.2; LYM% 8.4. 04/13 22:11 Order name: Magnesium; Complete Time: 23:21 04/14 01:21 Interpretation: Abnormal: MG 2.6. 04/13 22:11 Order name: PT-INR; Complete Time: 23:21 04/13 22:11 Order name: Troponin HS; Complete Time: 23:21 04/13 22:11 Order name: CMP; Complete Time: 23:21 04/14 00:37 Interpretation: Normal except: K 3.3; BUN 26; GFR 60; GLOB 4.0; A/G 0.9. 04/13 23:23 Order name: Urinalysis W/Microscopic; Complete Time: 00:37 04/14 01:22 Interpretation: Reviewed. 04/13 22:11 Order name: XRAY Chest (1 view) 04/13 23:23 Order name: CT Head Brain wo Cont 04/13 23:23 Order name: CT Abd/Pelvis - IV Contrast Only 04/13 22:11 Order name: EKG; Complete Time: 22:12 04/13 22:11 Order name: Cardiac monitoring; Complete Time: 22:19 04/13 22:11 Order name: EKG - Nurse/Tech; Complete Time: 22:28 04/13 22:11 Order name: IV Saline Lock; Complete Time: 22:28 04/13 22:11 Order name: Labs collected and sent; Complete Time: 22:28 04/13 22:11 Order name: O2 Per Protocol; Complete Time: 22:18 04/13 22:11 Order name: O2 Sat Monitoring; Complete Time: 22:18 04/13 22:14 Order name: Orthostatics; Complete Time: 22:28 cp EC/28 22:35 Rate is 61 beats/min. Rhythm is regular. IA interval is normal. QRS interval is normal. cp QT interval is normal. T waves are Inverted in leads aVL, aVR. Interpreted by me. Reviewed by me. Administered Medications: 04/14 00:00 Drug: Meclizine PO 25 mg PO once Route: PO; vc1 02:01 Follow up: Response: No adverse reaction; Marked relief of symptoms vc1 00:37 Drug: NS 0.9% IV 500 ml IV at 250 ml/hr continuous Route: IV; Rate: 250 ml/hr; Site: vc1 right antecubital; 01:49 Drug: Potassium PO Effervescent Tablet 50 mEq PO once; dissolve in 4 ounces of water or vc1 juice Route: PO; 02:01 Follow up: Response: No adverse reaction; Medication administered at discharge. vc1 Disposition: 04:03 Co-signature as Attending Physician, Helder Robb MD I reviewed the patient's care rt provided by the Advanced Practice Provider and agree with the diagnosis and treatment plan. Disposition Summary: 04/14/23 01:44 Discharge Ordered Notes: Location: Home cp Problem: new cp Symptoms: have improved cp Condition: Stable cp Diagnosis - Dizziness and giddiness cp - Lower abdominal pain, unspecified cp - Hypokalemia cp Followup: cp - With: Private Physician - When: 2 - 3 days - Reason: Recheck today's complaints Discharge Instructions: - Discharge Summary Sheet cp - Abdominal Pain, Adult cp - Potassium Content of Foods cp - Dizziness cp - Aspirin and Your Heart cp - Hypokalemia cp Forms: - Medication Reconciliation Form cp - Thank You Letter cp - Antibiotic Education cp - Prescription Opioid Use cp - Patient Portal Instructions cp - Leadership Thank You Letter cp Signatures: Dispatcher [employer] EDMS Clay Beard PA PA cp Gibson, Lacie, RN RN lg3 Aura Etienne RN RN vc1 Helder Robb MD MD rt Corrections: (The following items were deleted from the chart) 04/15 01:40 04/12 22:35 ECG was reviewed by the Attending Physician. cp cp 04/15 01:40 04/12 22:35 Rate is 61 beats/min. Rhythm is regular. IA interval is normal. QRS cp interval is normal. QT interval is normal. T waves are Inverted in leads aVL, aVR. Interpreted by me. Reviewed by me. cp 04/15 02:20 04/12 21:45 This 73 yrs old Male presents to ER via Ambulatory with complaints of cp Dizziness, low blood pressure, Abdominal Pain. cp 04/15 02:20 04/12 21:45 The patient presents with dizziness, feeling faint, lightheadedness, cp cp 04/15 02:20 04/12 21:45 Onset: The symptoms/episode began/occurred today, cp cp
[2023-04-14] MEDS ORDERED: POTASSIUM 25 MEQ EFFERV TAB ONE (01:54)
[2023-04-14 02:56] VITALS: TEMP 98
[2023-04-14 03:04] VITALS: BP 130/76; O2SAT 98
--- NOTE | 2023-04-14 10:55 | RAD REPORT ---
EXAM DESCRIPTION: RAD - Chest Single View - 04/13/2023 10:50 pm CLINICAL HISTORY: The patient is 73 years old and is Male; near syncope TECHNIQUE: Frontal view of the chest. COMPARISON: No relevant prior studies available. FINDINGS: LUNGS: Minimal linear opacity in the left lower lobe is present. The lungs are otherwise well-inflated and clear. PLEURAL SPACE: Unremarkable. No pneumothorax. HEART: Unremarkable. No cardiomegaly. MEDIASTINUM: Unremarkable. Normal mediastinal contour. BONES/JOINTS: Multilevel degenerative change of the spine is present. No acute fracture. UPPER ABDOMEN: Unremarkable as visualized. IMPRESSION: Left lower lobe atelectasis. Electronically signed by: Yolande Ly MD 04/13/2023 11:25 PM TELETYPE OPERATOR Due to temporary technical issues with the PACS/Fluency reporting system, reports are being signed by the in house radiologist without review as a courtesy to ensure prompt reporting. The interpreting r adiologist is fully responsible for the content of the report.
--- NOTE | 2023-04-14 11:11 | RAD REPORT ---
EXAM DESCRIPTION: CT - Head Brain Wo Cont - 04/14/2023 6:50 am CLINICAL HISTORY: 73-year-old male with dizziness. COMPARISON: None. TECHNIQUE: CT brain without contrast. This exam was performed according to our departmental dose opt imization program which includes use of automated exposure control, adjustment of the mA and/or kV ac cording to patient size and/or use of iterative reconstruction technique. FINDINGS: Multifocal regions of patchy hypoattenuation are present in a subcortical and periventricu lar deep white matter distribution, nonspecific; however, most likely represent small vessel ischemic disease, age indeterminate. The ventricles, sulci, and cisterns are symmetric and unremarkable. The araya-white matter different iation is preserved. There is no mass effect, midline shift, intra- or extra-axial fluid collection /acute hemorrhage. Partially empty sella otherwise the midline structures are within normal limits. The osseous structures are unremarkable. The paranasal demonstrate minimal mucosal thickening and t race secretions within the left maxillary sinus. The mastoid air cells are clear. IMPRESSION: 1. No acute intracranial abnormalities. Nonspecific white matter change most likely sm all vessel ischemic disease, age indeterminate. 2. CT is insensitive for early evaluation of acute stroke. If there is clinical concern for acute ischemia, an MRI may be considered. Electronically signed by: Danni Win MD 04/14/2023 12:40 AM COMPUTATIONAL GENETICIST Due to temporary technical issues with the PACS/Fluency reporting system, reports are being signed by the in house radiologist without review as a courtesy to ensure prompt reporting. The interpreting r adiologist is fully responsible for the content of the report.
--- NOTE | 2023-04-14 11:46 | RAD REPORT ---
EXAM DESCRIPTION: CT - Abdomen Pelvis W Contrast - 04/14/2023 6:51 am CLINICAL HISTORY: ABD PAIN TECHNIQUE: Axial computed tomography images of the abdomen and pelvis with intravenous contrast. S agittal and coronal reformatted images were created and reviewed. This CT exam was performed using one or more of the following dose reduction techniques: automated exposure control, adjustment of t he mA and/or kV according to patient size, and/or use of iterative reconstruction technique. COMPARISON: No relevant prior studies available. FINDINGS: Lung bases: Bibasilar subsegmental atelectasis/pleural parenchymal scar. 1 mm and 3 mm l eft lower lobe nodules (series 301 image 20). ABDOMEN: Liver: Unremarkable. No mass. Gallbladder and bile ducts: Unremarkable. No calcified stones. No ductal dilation. Pancreas: Unremarkable. No mass. No ductal dilation. Spleen: Unremarkable. No splenomegaly. Adrenals: Unremarkable. No mass. Kidneys and ureters: Unremarkable. No solid mass. No hydronephrosis. Stomach and bowel: Moderate stool. No bowel obstruction. No appreciable mucosal thickening. PELVIS: Appendix: Normal caliber appendix. No findings to suggest acute appendicitis. Bladder: The urinary bladder is decompressed. Reproductive: The prostate is surgically absent. ABDOMEN and PELVIS: Intraperitoneal space: Unremarkable. No free air. No significant fluid collection. Bones/joints: Multilevel spondylosis. Remote lower thoracic compression deformities. No acute fract ure. Mildly expansile multiloculated lytic lesion with peripheral sclerosis within the right iliac wing. No cortical breakthrough or periosteal reaction. No dislocation. Soft tissues: Small fat-containing umbilical and bilateral inguinal hernias. Vasculature: Mild atherosclerotic disease. No abdominal aortic aneurysm. Lymph nodes: Unremarkable. No enlarged lymph nodes. IMPRESSION: 1. No acute inflammatory process identified within the abdomen and pelvis. 2. Nonspecific lytic lesion within the right iliac wing. Given patient age, underlying malignancy/m etastatic disease is included within the differential. 3. 3 mm and 1 mm left lower lobe nodules. Per Fleischner Society Guidelines, no routine follow-up i maging is recommended. These guidelines do not apply to immunocompromised patients and patients with cancer. Follow up in patients with significant comorbidities as clinically warranted. For lung cancer screening, adhere to Lung-RADS guidelines. Reference: Radiology. 2017; 284(1):228-43. 4. Other findings as above. Electronically signed by: Nieves Saucedo MD 04/14/2023 12:47 AM FIRE SAFETY MANAGER Due to temporary technical issues with the PACS/Fluency reporting system, reports are being signed by the in house radiologist without review as a courtesy to ensure prompt reporting. The interpreting r adiologist is fully responsible for the content of the report.
--- NOTE | 2023-04-15 15:19 | EKG ---
Test Date: 2023-04-13 Test Time: 22:28:47 Alpine Patroller: BESS MEASUREMENT RESULTS: Intervals: Rate: 61 WA: 172 QRSD: 70 QT: 418 QTc: 420 [place]: P: 51 WA: 172 QRS: 3 T: 56 INTERPRETIVE STATEMENTS: Normal sinus rhythm with sinus arrhythmia Anterior infarct, age undetermined Abnormal ECG No previous ECG available for comparison Electronically Signed On 04-15-23 15:12:57 INSURANCE SALES ASSOCIATE by Bernardino Diop
== END 2023-04-14 02:25 | disposition home or self-care (01) ==
LOC: ER 21:08
DX: R42 Dizziness and giddiness (principal); E87.6 Hypokalemia; R10.32 Left lower quadrant pain; R10.31 Right lower quadrant pain; E78.00 Pure hypercholesterolemia, unspecified; Z88.0 Allergy status to penicillin
CPT/HCPCS: 93005; 85025; 81001; 36415; 83735; 85610; 84484; 80053; 70450; 74177; 71045; 99284; Q9967; J8597; J7040